=== PATIENT | female | born 1950 | race Caucasian/White ===

== ENCOUNTER 2021-04-04 15:00 | Outpatient (RCR) | payer MEDICARE, OTHER, SELFPAY ==
[2021-03-29 11:52] VITALS: PULSE 72
--- NOTE | 2021-04-21 15:24 | PCCPR ---
Addendum entered by Zaida Gomez RN 04/25/21 18:12: Jacey called back she had found our phone number and wanted to be sure to let us know she was unable to attend due to pain in her knee's and was hopeful to return next week. She plans to check with her Hand Hose Cutter on what she can take for pain. Addendum entered by Zaida Gomez RN 04/25/21 16:07: Cardiology dept called states Jacey CHINA on their VM she would not be in this week due to her knee's aching. Original Note: Absent without call or show since 04/04/21 Spoke with Jacey states she can barley walk for several days. Denies having an apt to discuss this withpablito KELLEY. Also asked her plan for return. Reminded her of the attendance policy and for her to give us a call if unable to make it. States she was not sure when that may be. Explained we will need to know if we need to continue to have her on hold or discharge. Asked she give us an answer by Wednesday 04/25.
--- NOTE | 2021-05-02 11:13 | PCCPR ---
Louise called in stating that her back is still really bothering her. She states she sees the Dredge Pumper this week and wants to talk with him before returning. She states she has company coming next week and so she wont be here next week. She then goes on to say she has an appt with her primary MD sometime in the beginning of May and thinks he will order some scans to see what is causing the pain. She has been very inconsistent on attending anyways so we decided to put her on hold and will follow up May 19.
--- NOTE | 2021-05-16 12:09 | PCCPR ---
Jacey called today and request to be placed on hold for an additional month. Jacey's sister is ill and she is going to care for her. I suggested that if it would be longer than a month than we would discharge her and obtain a new referral if she wishes to return.
--- NOTE | 2021-06-22 11:24 | PCCPR ---
discharge-spoke with Jacey. 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 She states she continues to have back/knee pain, which is worse since helping her sister. She states she isn't sure she'd be able to return any time soon. Will d/c from the program and she will f/u with MD if she plans to return.
== END 2021-06-22 11:26 | disposition home or self-care (01) ==
LOC: ANHCPREHAB 15:00
PROVIDERS: Visit Provider Internal Medicine Cardiovascular Disease
DX: Z95.1 Presence of aortocoronary bypass graft (principal)
CPT/HCPCS: 93798